=== PATIENT | female | born 1975 | race African-American/Black ===

== ENCOUNTER 2018-06-29 22:15 | Emergency (ER) ==
[~2018-06-29] VITALS: Ht 160 cm; Wt 87.5 kg
--- NOTE | 2018-06-29 22:43 | NUR ---
BIBSELF C/O VAGINAL DISCHARGE X2 WEEKS. DESCRIBED MEDIUM AMOUNT WITH AN ODOR. PT DENIES ABDOMINAL PAIN, DYSURIA, HEMATURIA, VAGINAL BLEEDING. PT STATES SHE HAD RECENT PROCEDURE FOR FIBROIDS. PT AAOX4. RESPIRATIONS EVEN AND UNLABORED. SKIN INTACT. NO ACUTE DISTRESS NOTED AT THIS TIME.
--- NOTE | 2018-06-29 23:14 | NUR ---
PELVIC SET UP. MD AT BEDSIDE FOR EVALUATION.
--- NOTE | 2018-06-29 23:18 | NUR ---
WET MOUNT COLLECTED AND SENT TO LAB
[2018-06-30 00:45] VITALS: BP 122/89
--- NOTE | 2018-06-30 00:45 | NUR ---
Patient discharged to home in stable condition. Written and verbal after care instructions given. Patient verbalizes understanding of instruction. Pt ambulatory with a steady gait
== END 2018-06-30 00:46 | disposition home or self-care (01) ==
LOC: ER 22:18
DX: N76.0 Acute vaginitis (principal); I10 Essential (primary) hypertension; F17.200 Nicotine dependence, unspecified, uncomplicated
CPT/HCPCS: 87210-TC